=== PATIENT | female | born 1990 | race Two or more races ===

== ENCOUNTER 2021-02-12 16:31 | Emergency (ER) | payer SELFPAY | END 2021-02-12 19:55 | disposition left against medical advice (07) | LOC: EMS 16:31 | DX: S00.81XA Abrasion of other part of head, initial encounter (principal); R41.82 Altered mental status, unspecified; X58.XXXA Exposure to other specified factors, initial encounter; Y93.89 Activity, other specified; Y92.89 Other specified places as the place of occurrence of the external cause; Y99.8 Other external cause status | CPT/HCPCS: 99283 ==